=== PATIENT | male | born 2000 | race Caucasian/White ===

== ENCOUNTER 2018-12-28 00:23 | Emergency (ER) | payer SELFPAY ==
--- NOTE | 2018-12-28 00:37 | ED ---
Laceration/Wound HPI - HPI Summary HPI Summary: Patient presents with laceration to the third digit of left hand from open can. Tetanus status up-to-date. Denies any other pain, injury or symptoms. - History of Current Complaint Stated Complaint: LEFT MIDDLE FINGER LACERATION PER PT Time Seen by Provider: 12/28/18 00:36 Hx Obtained From: Patient Mechanism of Injury: Sharp/Blunt Trauma Aggravating: Movement Onset Severity: Mild Current Severity: Mild Pain Intensity: 3 Pain Scale Used: 0-10 Numeric Associated Signs & Symptoms: Pain - Allergy/Home Medications Allergies/Adverse Reactions: Allergies Allergy/AdvReac Type Severity Reaction Status Date / Time Latex, Natural Rubber Allergy Rash Verified 12/28/18 00:26 PMH/Surg Hx/FS Hx/Imm Hx Endocrine/Hematology History: Denies: Hx Anticoagulant Therapy Cardiovascular History: Denies: Hx Pacemaker/ICD History: Denies: Hx Dialysis Sensory History: Denies: Hx Eye Prosthesis Opthamlomology History: Denies: Hx Legally Blind EENT History: Denies: Hx Deafness Neurological History: Denies: Hx Dementia Infectious Disease History: No Infectious Disease History: Denies: Traveled Outside the [place] in Last 30 Days - Family History Known Family History: Positive: Non-Contributory - Social History Alcohol Use: Occasionally Hx Substance Use: No Hx Tobacco Use: No Review of Systems Constitutional: Negative Eyes: Negative ENT: Negative Cardiovascular: Negative Respiratory: Negative Gastrointestinal: Negative Genitourinary: Negative Musculoskeletal: Negative Skin: Other Neurological: Negative Psychological: Normal All Other Systems Reviewed And Are Negative: Yes Physical Exam - Summary Physical Exam Summary: Skin avulsion 2 centimeters long by 1 cm wide. No indication for suturing. Triage Information Reviewed: Yes Vital Signs On Initial Exam: Initial Vitals Temp Pulse Resp BP Pulse Ox 98.6 F 110 18 148/117 99 12/28/18 00:25 12/28/18 00:25 12/28/18 00:25 12/28/18 00:25 12/28/18 00:25 Vital Signs Reviewed: Yes Appearance: Positive: Well-Appearing Skin: Positive: Warm Head/Face: Positive: Normal Head/Face Inspection Eyes: Positive: Normal Neck: Positive: Supple Respiratory/Lung Sounds: Positive: Clear to Auscultation Cardiovascular: Positive: Normal Abdomen Description: Positive: Nontender Musculoskeletal: Positive: Normal Neurological: Positive: Normal Psychiatric: Positive: Normal AVPU Assessment: Alert - [place] Coma Scale Best Eye Response: 4 - Spontaneous Best Motor Response: 6 - Obeys Commands Best Verbal Response: 5 - Oriented Coma Scale Total: 15 Procedures - Sedation Patient Received Moderate/Deep Sedation with Procedure: No Diagnostics - Vital Signs Vital Signs Temp Pulse Resp BP Pulse Ox 12/28/18 00:25 98.6 F 110 18 148/117 99 - Laboratory Lab Statement: Any lab studies that have been ordered have been reviewed, and results considered in the medical decision making process. Laceration Repair Course/Dx - Course Course Of Treatment: Patient presents with laceration to the third digit of left hand from open can. Tetanus status up-to-date. Denies any other pain, injury or symptoms. Vital signs within normal limits. Wound cleaned. Wound covered with Xeroform, Telfa pad and Coban for pressure wrap. Patient advised to take dressing off in 2 days, then keep wound clean and dry and cover with Band-Aid. - Clinical Impression Provider Diagnoses: Avulsion of skin of finger Discharge ED - Sign-Out/Discharge Documenting (check all that apply): Patient Departure - Discharge Plan Condition: Stable Disposition: HOME Patient Education Materials: Skin Avulsion (ED) Referrals: No Primary Care Phys,NOPCP [Primary Care Provider] - Additional Instructions: Leave dressing on for 2 days. After removal of dressing wash with warm running water and soap. Then keep wound covered with antibiotic ointment and Band-Aids until healed. - Billing Disposition and Condition Condition: STABLE Disposition: Home
[2018-12-28 01:36] VITALS: BP 152/76
== END 2018-12-28 01:35 | disposition home or self-care (01) ==
LOC: ED 00:23
DX: S61.213A Laceration without foreign body of left middle finger without damage to nail, initial encounter (principal); W26.8XXA Contact with other sharp object(s), not elsewhere classified, initial encounter; Y92.9 Unspecified place or not applicable; Z91.040 Latex allergy status
CPT/HCPCS: 99282